=== PATIENT | male | born 1965 | race Caucasian/White ===

== ENCOUNTER → 2025-04-19 | Outpatient (CLI) | payer OTHER ==
[~2025-04-19] MED LIST: ASCO500 PO; CRUTCH2 USE; HYDACE5 PO; MULVIT PO; OMEPRAZOLE MAGN20 MG PO; TESTONE CI200 MG/1 M IM; VITAMIN D5000 UNIT PO
== END | disposition home or self-care (01) ==
LOC: LAB SHORT 07:55 → LAB 07:55
DX: R22.41 Localized swelling, mass and lump, right lower limb (principal); M70.41 Prepatellar bursitis, right knee
CPT/HCPCS: 88302